=== PATIENT | female | born 1995 | race Caucasian/White ===

== ENCOUNTER 2016-10-09 16:05 | Emergency (ER) | payer OTHER ==
[~2016-10-09 16:05] MED LIST: LORTAB 5/500 501 TAB PO; NO HOME MEDICATIONS
[2016-10-09] MEDS ORDERED: TRI-SPRINTEC T1 EACH (16:11)
[2016-10-09] MEDS ORDERED: ORPHENADRINE C100 MG PO (17:34)
[2016-10-09] MEDS ORDERED: ZOFRAN ODT8 M1 PO (17:34)
[2016-10-09] MEDS ORDERED: IBU800 M1 PO (17:34)
[2016-10-09 17:46] VITALS: BP 121/68
== END 2016-10-09 17:47 | disposition home or self-care (01) ==
LOC: ED 16:05
DX: S06.0X0A Concussion without loss of consciousness, initial encounter (principal); S16.1XXA Strain of muscle, fascia and tendon at neck level, initial encounter; M62.838 Other muscle spasm; V80.010A Animal-rider injured by fall from or being thrown from horse in noncollision accident, initial encounter; Y93.52 Activity, horseback riding; Y92.007 Garden or yard of unspecified non-institutional (private) residence as the place of occurrence of the external cause